=== PATIENT | female | born 1965 | race Hispanic/Latino ===

== ENCOUNTER 2017-01-27 06:41 | Emergency (ER) | payer SELFPAY ==
[2017-01-27] MEDS ORDERED: Ketorolac Tromethamine 30 MG/ML VIAL ONE (07:44)
[2017-01-27] MEDS ORDERED: Ondansetron ODT 4 MG TAB ONE (07:44)
[2017-01-27 07:46] LABS: Bilirubin Negative (Negative); Blood, Urine Trace (Negative); Glucose, Urine (Dipstick) Negative (Negative); Ketone, Urine Trace mg/dL (Negative); Nitrite Negative (Negative); Protein, Urine (Dipstick) Negative (Neg-Trace); Urobilinogen 0.2 mg/dL (0.2-1.0)
[2017-01-27 08:25] LABS: Bacteria/HPF 3+ HPF (None Seen); RBC/HPF 0-3 HPF (0-3)
== END 2017-01-27 08:47 | disposition home or self-care (01) ==
LOC: ERS 06:41
DX: M54.6 Pain in thoracic spine (principal); Z79.899 Other long term (current) drug therapy
CPT/HCPCS: 81003; 81015; 96372; J1885; Q0162

== ENCOUNTER 2017-04-23 08:15 | Emergency (ER) | payer SELFPAY ==
[2017-04-23 08:52] LABS: Bilirubin Negative (Negative); Blood, Urine Trace (Negative); Glucose, Urine (Dipstick) Negative (Negative); Ketone, Urine Negative (Negative); Nitrite Negative (Negative); Protein, Urine (Dipstick) Negative (Neg-Trace); Urobilinogen 0.2 mg/dL (0.2-1.0)
[2017-04-23 08:54] LABS: Bacteria/HPF None Seen HPF (None Seen); Hyaline Casts/LPF 0-3 HYALINE CAST LPF (0-3 Hyaline); RBC/HPF 0-3 HPF (0-3); Squamous Epithelial 0-3 HPF (0-3)
[2017-04-23 09:03] LABS: Yeast-All Forms None Seen HPF (None Seen)
[2017-04-23] MEDS ORDERED: Ondansetron HCl/PF 4 MG/2 ML Vial ONE (09:17)
[2017-04-23] MEDS ORDERED: Ondansetron ODT 4 MG TAB ONE (09:18)
== END 2017-04-23 10:05 | disposition home or self-care (01) ==
LOC: ERS 08:15
DX: R11.2 Nausea with vomiting, unspecified (principal); N39.0 Urinary tract infection, site not specified; T37.3X5A Adverse effect of other antiprotozoal drugs, initial encounter; T37.0X5A Adverse effect of sulfonamides, initial encounter; Z79.899 Other long term (current) drug therapy
CPT/HCPCS: 81003; 81015; 99283; J2405; Q0162

== ENCOUNTER 2017-04-27 03:27 | Emergency (ER) | payer SELFPAY | END 2017-04-27 03:59 | disposition left against medical advice (07) | LOC: ERS 03:27 | DX: Z53.21 Procedure and treatment not carried out due to patient leaving prior to being seen by health care provider (principal) ==

== ENCOUNTER 2017-07-08 12:56 | Emergency (ER) | payer SELFPAY ==
[2017-07-08 13:25] LABS: Bilirubin Negative (Negative); Blood, Urine Negative (Negative); Clarity CLOUDY (Clear); Glucose, Urine (Dipstick) Negative (Negative); Leukocyte Small (Negative); Nitrite Negative (Negative); Protein, Urine (Dipstick) Negative (Neg-Trace); Specific Gravity, Urine 1.014 (1.002-1.036); Urobilinogen 0.2 mg/dL (0.2-1.0)
[2017-07-08 13:30] LABS: Bacteria/HPF 1+ HPF (None Seen); Hyaline Casts/LPF 0-3 HYALINE CAST LPF (0-3 Hyaline); Pathc Cast-AUWi Flag 0.13 (0-2.49); WBC/HPF 0-3 HPF (0-3)
[2017-07-08 13:40] LABS: RBC/HPF 0-3 HPF (0-3)
[2017-07-09 22:26] LABS: Chlamydia by PCR Not Detected (NotDetected); GC by PCR Not Detected (NotDetected)
== END 2017-07-08 14:20 | disposition home or self-care (01) ==
LOC: ERS 12:56
DX: N76.0 Acute vaginitis (principal)
CPT/HCPCS: 81003; 81015; 87480; 87491; 87510; 87591; 87660; 99283

== ENCOUNTER 2018-04-15 21:45 | Emergency (ER) | payer SELFPAY ==
[2018-04-15 22:25] LABS: #Basophils 0.1 thou/uL (0.0-0.2); #Eosinphils 0.4 thou/uL (0.0-0.7); #Lymphocytes 4.3 thou/uL (1.20-3.40); #Monocytes 0.5 thou/uL (0.11-0.59); %Basophils 0.9 % (0.0-1.0); %Eosinophils 4.2 % (0.0-10.0); %Lymphocytes 46.4 % (21.0-51.0); %Monocytes 5.8 % (0.0-10.0); %Neutrophils 42.8 % (42.0-75.0); Hemoglobin 13.1 g/dL (12.0-16.0); Mean Corpuscular HGB CONC 35.2 g/dL (32.0-36.0); Mean Corpuscular Hemoglobin 30.4 pg (27.0-31.0); Mean Corpuscular Volume 86.4 fL (78.0-98.0); Mean Platelet Volume 8.5 fL (7.4-10.4); Platelet Count 196 thou/uL (130-400); RBC Distribution Width 12.2 % (11.5-14.5); White Blood Cell (WBC) Count 9.3 thou/uL (4.8-10.8)
[2018-04-15] MEDS ORDERED: Ondansetron PF 4 MG/2 ML Vial ONE (22:29)
--- NOTE | 2018-04-15 22:53 | RAD ---
CHEST PA AND LATERAL TWO VIEWS: 04/15/18 HISTORY: 52-year-old female with history of chest pain and chest tightness and pressure for three days. Heart size is normal. The lungs are clear. No pneumonia, edema, pleural effusion, or other acute proc ess. IMPRESSION: No acute intrathoracic disease. POS: [facility]
[2018-04-15 23:19] LABS: ALT (SGPT) 18 U/L (8-55); AST (SGOT) 19 U/L (5-34); Albumin 4.3 g/dL (3.5-5.0); Alkaline Phosphatase 126 U/L (40-150); Anion Gap 13 mmol/L (10-20); BUN (Urea Nitrogen) 16 mg/dL (9.8-20.1); Bilirubin, Total 0.4 mg/dL (0.2-1.2); Calc. Creatinine Clearance 0 mL/min (70-130); Calcium 9.6 mg/dL (7.8-10.44); Carbon Dioxide 27 mmol/L (22-29); Chloride 103 mmol/L (98-107); Estimated GFR-MDRD 58; Globulin 3.7 g/dL (2.4-3.5); Glucose 110 mg/dL (70-105); Potassium 3.6 mmol/L (3.5-5.1); Sodium 139 mmol/L (136-145)
--- NOTE | 2018-04-17 13:41 | EKG ---
Test Reason : Blood Pressure : / mmHG Vent. Rate : 098 BPM Atrial Rate : 098 BPM P-R Int : 120 ms QRS Dur : 070 ms QT Int : 356 ms P-R-T Axes : 040 067 053 degrees QTc Int : 454 ms Normal sinus rhythm Normal ECG Confirmed by DEBORAH LINDO DO ([id number]), mapping editor INÉS MICHAEL ([id number] on 04/17/2018 1:41:28 PM Referred By: Confirmed By:DEBORAH LINDO DO
== END 2018-04-16 02:02 | disposition home or self-care (01) ==
LOC: ERS 21:45
DX: R07.89 Other chest pain (principal)
CPT/HCPCS: 36415; 71046; 80053; 84484; 85025; 93005; 96374; J2405

== ENCOUNTER 2018-09-04 14:25 | Emergency (ER) | payer SELFPAY ==
[2018-09-04] MEDS ORDERED: Morphine 4 MG/ML VIAL ONE (15:01)
[2018-09-04] MEDS ORDERED: Ondansetron PF 4 MG/2 ML Vial ONE ×2 (15:01→16:41)
[2018-09-04 15:05] LABS: #Eosinphils 0.4 thou/uL (0.0-0.7); #Monocytes 0.5 thou/uL (0.11-0.59); #Neutrophils 4.1 thou/uL (1.40-6.50); %Basophils 0.3 % (0.0-1.0); %Lymphocytes 44.3 % (21.0-51.0); %Monocytes 5.9 % (0.0-10.0); %Neutrophils 45.6 % (42.0-75.0); Hemoglobin 13.5 g/dL (12.0-16.0); Mean Corpuscular HGB CONC 35.1 g/dL (32.0-36.0); Mean Corpuscular Hemoglobin 30.6 pg (27.0-31.0); Mean Corpuscular Volume 87.3 fL (78.0-98.0); Platelet Count 199 thou/uL (130-400); RBC Distribution Width 12.3 % (11.5-14.5); White Blood Cell (WBC) Count 8.9 thou/uL (4.8-10.8)
[2018-09-04 15:27] LABS: ALT (SGPT) 13 U/L (8-55); AST (SGOT) 15 U/L (5-34); Albumin 4.3 g/dL (3.5-5.0); Alkaline Phosphatase 119 U/L (40-150); Anion Gap 13 mmol/L (10-20); BUN (Urea Nitrogen) 12 mg/dL (9.8-20.1); Bilirubin, Total 0.5 mg/dL (0.2-1.2); Calc. Creatinine Clearance 0 mL/min (70-130); Calcium 9.1 mg/dL (7.8-10.44); Carbon Dioxide 28 mmol/L (22-29); Chloride 103 mmol/L (98-107); Estimated GFR-MDRD 61; Globulin 3.1 g/dL (2.4-3.5); Glucose 96 mg/dL (70-105); Lipase 43 U/L (8-78); Potassium 3.9 mmol/L (3.5-5.1); Protein, Total 7.4 g/dL (6.0-8.3); Sodium 140 mmol/L (136-145)
[2018-09-04 15:29] LABS: Bilirubin Negative (Negative); Blood, Urine Small (Negative); Clarity CLOUDY (Clear); Glucose, Urine (Dipstick) Negative (Negative); Leukocyte Moderate (Negative); Nitrite Negative (Negative); Protein, Urine (Dipstick) Negative (Neg-Trace); Specific Gravity, Urine 1.021 (1.002-1.036); Urobilinogen 0.2 mg/dL (0.2-1.0)
[2018-09-04 15:32] LABS: Bacteria/HPF 1+ HPF (None Seen); Hyaline Casts/LPF 0-3 HYALINE CAST LPF (0-3 Hyaline); Squamous Epithelial 0-3 HPF (0-3)
[2018-09-04 15:38] LABS: Pregnancy Test - Urine (BHCG) Negative (Negative); Pregu Control Background? CLEAR/WHITE (CLR/WHITE); Pregu Control Bar Appear? YES (CONTROL BAR); Specific Gravity 1.021 (1.002-1.036)
[2018-09-04] MEDS ORDERED: Sodium Chloride 0.9% 100 ML ONE (15:57)
[2018-09-04] MEDS ORDERED: cefTRIAXone\\ROCEPHIN 2 GM VIAL ONE (15:57)
--- NOTE | 2018-09-04 16:13 | CT ---
Contrast-enhanced CT images of abdomen and pelvis. HISTORY: Epigastric abdominal pain. The lung bases are unremarkable. No evidence of free intraperitoneal air seen. The liver contains hypodense areas most compatible with hepatic cysts. Some intrahepatic biliary dilatation is seen. The gallbladder has been surgically removed. Pancreas is unremarkable. The spleen is unremarkable. Adrenal glands and kidneys are unremarkable. No evidence of periaortic lymphadenopathy seen. Some jejunal fecalization of the small bowel content is present. There appears to be some surrounding edema surrounding these loops of small bowel. Some of the proximal small bowel loops are also thickened and dilated measuring up to 2 cm in diameter. This may represent changes of enteritis. Some mildly enlarged mesenteric lymph nodes also present in this area. More distally the small bowel is of normal caliber. Some colonic thickening. The descending colon is of normal caliber. No evidence of periaortic lymphadenopathy seen. No evidence of free intraperitoneal air or fluid seen. IMPRESSION: 1. Numerous hepatic cysts 2: Proximal small bowel dilatation with some inflammatory change and mildly enlarged mesenteric lymph nodes. Transcribed Date/Time: 09/04/2018 4:22 PM
[2018-09-04] MEDS ORDERED: ISOVUE-370 76%-LOCM 1 ML ONE (16:53)
== END 2018-09-04 17:00 | disposition home or self-care (01) ==
LOC: ERS 14:25
DX: N39.0 Urinary tract infection, site not specified (principal)
CPT/HCPCS: 36415; 74177; 80053; 81003; 81015; 81025; 83690; 84484; 85025; 87077; 87086; 87186; 93005; 96361; 96365; 96375; 96376; J0696; J2270; J2405; J3490; Q9966

== ENCOUNTER 2018-11-24 17:25 | Emergency (ER) | payer SELFPAY ==
[2018-11-24] MEDS ORDERED: Aspirin 325 MG TAB ONE (17:46)
[2018-11-24 17:56] LABS: #Eosinphils 0.4 thou/uL (0.0-0.7); #Lymphocytes 3.3 thou/uL (1.20-3.40); #Monocytes 0.4 thou/uL (0.11-0.59); #Neutrophils 3.7 thou/uL (1.40-6.50); %Basophils 0.1 % (0.0-1.0); %Eosinophils 5.7 % (0.0-10.0); %Lymphocytes 42.2 % (21.0-51.0); %Monocytes 5.2 % (0.0-10.0); %Neutrophils 46.8 % (42.0-75.0); Hemoglobin 13.6 g/dL (12.0-16.0); Mean Corpuscular HGB CONC 35.1 g/dL (32.0-36.0); Mean Corpuscular Hemoglobin 30.4 pg (27.0-31.0); Mean Corpuscular Volume 86.6 fL (78.0-98.0); Mean Platelet Volume 8.1 fL (7.4-10.4); Platelet Count 198 thou/uL (130-400); RBC Distribution Width 12.3 % (11.5-14.5); Red Blood Cell (RBC) Count 4.46 mill/uL (4.20-5.40); White Blood Cell (WBC) Count 7.8 thou/uL (4.8-10.8)
--- NOTE | 2018-11-24 18:06 | RAD ---
PORTABLE CHEST: 11/24/18 HISTORY: Chest pain. Lungs are clear. Heart and mediastinum appear normal. Vascular markings normal. IMPRESSION: Unremarkable chest. POS: OFF
[2018-11-24] MEDS ORDERED: Ondansetron ODT 4 MG TAB ONE (18:11)
[2018-11-24 18:20] LABS: ALT (SGPT) 21 U/L (8-55); AST (SGOT) 20 U/L (5-34); Albumin 4.4 g/dL (3.5-5.0); Alkaline Phosphatase 128 U/L (40-150); Anion Gap 14 mmol/L (10-20); BUN (Urea Nitrogen) 19 mg/dL (9.8-20.1); Bilirubin, Total 0.3 mg/dL (0.2-1.2); Calc. Creatinine Clearance 0 mL/min (70-130); Calcium 9.8 mg/dL (7.8-10.44); Carbon Dioxide 27 mmol/L (22-29); Chloride 104 mmol/L (98-107); Estimated GFR-MDRD 63; Globulin 3.4 g/dL (2.4-3.5); Glucose 112 mg/dL (70-105); Lipase 80 U/L (8-78); Protein, Total 7.8 g/dL (6.0-8.3); Sodium 141 mmol/L (136-145)
[2018-11-24 18:48] LABS: Bilirubin Negative (Negative); Blood, Urine Negative (Negative); Clarity Clear (Clear); Glucose, Urine (Dipstick) Normal (Negative); Leukocyte 250 Leu/uL (Negative); Nitrite Negative (Negative); Protein, Urine (Dipstick) Negative (Neg-Trace); Urobilinogen Normal mg/dL (Less than 2)
[2018-11-24 18:49] LABS: Bacteria/HPF 1+ HPF (None Seen)
--- NOTE | 2018-11-24 19:36 | ULT ---
DIRECTED ULTRASOUND LEFT BREAST: 11/24/18 INDICATION: Concern about spot on breast. Area of concern at 6 o'clock is imaged with ultrasound. No sonographic abnormality identified. IMPRESSION: No sonographic abnormality at the site of concern. POS: OFF
[2018-11-24] MEDS ORDERED: Lidocaine Viscous Sol 2% 15 ml UD Cup ONE (19:39)
[2018-11-24] MEDS ORDERED: Mag-Al 1200 mg/1200 mg/30 ML UDCUP ONE (19:39)
[2018-11-24] MEDS ORDERED: Lidocaine 2% Viscous Solution 10 ML, Aluminum & Magnesium Hydroxide 30 ML SSW SCH (19:45)
== END 2018-11-24 20:15 | disposition home or self-care (01) ==
LOC: ERS 17:25
DX: N64.4 Mastodynia (principal); N39.0 Urinary tract infection, site not specified
CPT/HCPCS: 36415; 71045; 80053; 81003; 81015; 83690; 84484; 85025; 93005; Q0162

== ENCOUNTER 2019-01-08 15:04 | Emergency (ER) | payer SELFPAY ==
[2019-01-08] MEDS ORDERED: Ondansetron ODT 4 MG TAB ONE (15:44)
--- NOTE | 2019-01-08 15:50 | RAD ---
EXAM: Two views chest PROVIDED CLINICAL HISTORY: Cough COMPARISON: 04/15/2018 FINDINGS: Cardiac and mediastinal silhouette appears within normal limits. Lungs appear free of significant opa city. No pleural fluid or pneumothorax apparent. IMPRESSION: No evidence for an acute cardiopulmonary process.
== END 2019-01-08 17:36 | disposition home or self-care (01) ==
LOC: ERS 15:04
DX: J06.9 Acute upper respiratory infection, unspecified (principal)
CPT/HCPCS: 71046; 87804; Q0162

== ENCOUNTER 2019-02-26 09:50 | Emergency (ER) | payer SELFPAY ==
[2019-02-26] MEDS ORDERED: Morphine 4 MG/ML VIAL ONE (10:13)
[2019-02-26] MEDS ORDERED: Ondansetron PF 4 MG/2 ML Vial ONE (10:13)
[2019-02-26 10:34] LABS: #Eosinphils 0.2 thou/uL (0.0-0.7); #Lymphocytes 3.4 thou/uL (1.20-3.40); #Monocytes 0.4 thou/uL (0.11-0.59); #Neutrophils 5.6 thou/uL (1.40-6.50); %Basophils 0.4 % (0.0-1.0); %Eosinophils 1.7 % (0.0-10.0); %Lymphocytes 35.5 % (21.0-51.0); %Monocytes 4.1 % (0.0-10.0); %Neutrophils 58.4 % (42.0-75.0); Mean Corpuscular HGB CONC 34.6 g/dL (32.0-36.0); Mean Corpuscular Hemoglobin 30.2 pg (27.0-31.0); Mean Corpuscular Volume 87.3 fL (78.0-98.0); Mean Platelet Volume 8.4 fL (7.4-10.4); Platelet Count 214 thou/uL (130-400); RBC Distribution Width 12.2 % (11.5-14.5); Red Blood Cell (RBC) Count 4.64 mill/uL (4.20-5.40); White Blood Cell (WBC) Count 9.6 thou/uL (4.8-10.8)
[2019-02-26 11:08] LABS: ALT (SGPT) 17 U/L (8-55); AST (SGOT) 22 U/L (5-34); Albumin 4.5 g/dL (3.5-5.0); Alkaline Phosphatase 131 U/L (40-110); Anion Gap 14 mmol/L (10-20); BUN (Urea Nitrogen) 11 mg/dL (9.8-20.1); Bilirubin, Total 0.6 mg/dL (0.2-1.2); Calc. Creatinine Clearance 0 mL/min (70-130); Calcium 9.7 mg/dL (7.8-10.44); Carbon Dioxide 24 mmol/L (22-29); Chloride 106 mmol/L (98-107); Estimated GFR-MDRD 66; Globulin 3.6 g/dL (2.4-3.5); Glucose 108 mg/dL (70-105); Potassium 4.3 mmol/L (3.5-5.1); Protein, Total 8.1 g/dL (6.0-8.3); Sodium 140 mmol/L (136-145)
[2019-02-26] MEDS ORDERED: Acetaminophen 500 MG TAB ONE (11:23)
[2019-02-26] MEDS ORDERED: ISOVUE-370 76%-LOCM 1 ML ONE (11:47)
--- NOTE | 2019-02-26 12:28 | CT ---
CT ABDOMEN AND PELVIS WITH IV CONTRAST: Date: 02/26/19 HISTORY: Lower abdominal/suprapubic pain. FINDINGS: Comparison made with exam of 09/04/18. The lung bases are clear. The patient is post cholecystectomy, appendectomy, and hysterectomy. Multiple low density lesions in the liver, likely cysts, are stable. The spleen, pancreas, adrenal gl ands, and kidneys are normal. No free air, free fluid, or lymphadenopathy seen in the abdomen or pelvis. There is no evidence of an eurysmal dilatation of the abdominal aorta. There are mild degenerative changes in the spine. The consatnza cending colon and sigmoid colon are decompressed with prominent walker. No pericolonic inflammatory ch anges are seen. IMPRESSION: Incomplete distention versus wall thickening of the descending and sigmoid colon. Colonoscopy would b e helpful. POS: OFF
[2019-02-26 12:29] LABS: Bacteria/HPF 1+ HPF (None Seen); Bilirubin Negative (Negative); Blood, Urine Trace (Negative); Clarity Clear (Clear); Glucose, Urine (Dipstick) Normal (Negative); Leukocyte Negative Leu/uL (Negative); Nitrite Negative (Negative); Protein, Urine (Dipstick) Negative (Neg-Trace); RBC/HPF 0-3 HPF (0-3); Squamous Epithelial 0-3 HPF (0-3); Urobilinogen Normal mg/dL (Less than 2); WBC/HPF 0-3 HPF (0-3)
== END 2019-02-26 13:53 | disposition home or self-care (01) ==
LOC: ERS 09:50
DX: K52.9 Noninfective gastroenteritis and colitis, unspecified (principal)
CPT/HCPCS: 74177; 80053; 81003; 81015; 85025; 96361; 96374; 96375; J2270; J2405; Q9966

== ENCOUNTER 2019-02-28 09:19 | Emergency (ER) | payer SELFPAY | END 2019-02-28 12:05 | disposition left against medical advice (07) | LOC: ERS 09:19 | DX: Z53.21 Procedure and treatment not carried out due to patient leaving prior to being seen by health care provider (principal) ==

== ENCOUNTER 2019-06-21 23:11 | Emergency (ER) | payer SELFPAY ==
[2019-06-21 23:34] LABS: Bilirubin Negative (Negative); Blood, Urine 3+ (Negative); Clarity Turbid (Clear); Glucose, Urine (Dipstick) Normal (Negative); Leukocyte 500 Leu/uL (Negative); Nitrite Negative (Negative); Protein, Urine (Dipstick) 50 mg/dL (Neg-Trace); RBC/HPF Greater than 50 HPF (0-3); Transitional Epithelial 0-3 HPF (None Seen); Urobilinogen Normal mg/dL (Less than 2); WBC/HPF Greater than 50 HPF (0-3)
[2019-06-21 23:38] LABS: Bacteria/HPF 1+ HPF (None Seen)
== END 2019-06-22 01:41 | disposition left against medical advice (07) ==
LOC: ERS 23:11
DX: Z53.21 Procedure and treatment not carried out due to patient leaving prior to being seen by health care provider (principal)
CPT/HCPCS: 81003; 81015

== ENCOUNTER 2019-08-07 13:35 | Emergency (ER) | payer OTHER ==
[2019-08-07] MEDS ORDERED: Acetaminophen 500 MG TAB ONE (13:51)
== END 2019-08-07 14:22 | disposition home or self-care (01) ==
LOC: ERS 13:35
DX: J06.9 Acute upper respiratory infection, unspecified (principal)
CPT/HCPCS: 87804; 99283

== ENCOUNTER 2019-08-26 21:33 | Emergency (ER) | payer OTHER ==
[2019-08-26 22:43] LABS: Bacteria/HPF None Seen HPF (None Seen); Bilirubin Negative (Negative); Blood, Urine Negative (Negative); Clarity Clear (Clear); Glucose, Urine (Dipstick) Normal (Negative); Leukocyte 25 Leu/uL (Negative); Nitrite Negative (Negative); Protein, Urine (Dipstick) 20 mg/dL (Neg-Trace); RBC/HPF 0-3 HPF (0-3); Urobilinogen Normal mg/dL (Less than 2)
[2019-08-26] MEDS ORDERED: Metoclopramide HCl 10 MG/2 ML VIAL ONE (23:21)
[2019-08-26] MEDS ORDERED: Ketorolac Tromethamine 30 MG/ML VIAL ONE (23:21)
== END 2019-08-27 01:14 | disposition home or self-care (01) ==
LOC: ERS 21:33
DX: R51 Headache (principal); R11.2 Nausea with vomiting, unspecified
CPT/HCPCS: 81003; 81015; 96365; 96375; J1885; J2765

== ENCOUNTER 2019-10-04 11:37 | Emergency (ER) | payer OTHER | END 2019-10-04 13:30 | disposition home or self-care (01) | LOC: ERS 11:37 | DX: S93.401A Sprain of unspecified ligament of right ankle, initial encounter (principal); X50.1XXA Overexertion from prolonged static or awkward postures, initial encounter | CPT/HCPCS: 99283 ==

== ENCOUNTER 2019-10-10 09:26 | Outpatient (CLI) | payer OTHER ==
--- NOTE | 2019-10-10 15:07 | ULT ---
LEFT BREAST ULTRASOUND: History: Follow up of hypoechoic lesion, left breast, 7 o'clock position. Comparison: 04-06-19 FINDINGS: Real-time imaging of the area of concern which is at the 7 o'clock position 4 cm from the nipple show s a hypoechoic lesion with areas of increased signal change which could represent septation related t o a cyst, possibly this represents a lymph node, but no flow could be demonstrated. It is stable in a ppearance measuring approximately 3 x 8 mm in size. IMPRESSION: Stable hypoechoic probable complex cyst at the 7 o'clock position 4 cm from the nipple. An additional 6 month follow up examination is recommended for more complete assessment. POS: [facility]
== END 2019-10-10 09:27 | disposition home or self-care (01) ==
LOC: BICULT 09:26 → EDSTATUS 10:00
PROVIDERS: ATTEND Nurse Practitioner Family
DX: N63.20 Unspecified lump in the left breast, unspecified quadrant (principal); N60.02 Solitary cyst of left breast

== ENCOUNTER 2020-04-03 17:19 | Emergency (ER) | payer OTHER ==
[2020-04-03 19:06] LABS: Bilirubin Negative (Negative); Blood, Urine Negative (Negative); Clarity Clear (Clear); Glucose, Urine (Dipstick) Normal (Negative); Ketone, Urine Trace mg/dL (Negative); Leukocyte 250 Leu/uL (Negative); Mucous/LPF 1+ LPF (<2+); Nitrite Negative (Negative); Protein, Urine (Dipstick) 10 mg/dL (Neg-Trace); Specific Gravity, Urine 1.029 (1.002-1.036); Urobilinogen Normal mg/dL (Less than 2); WBC/HPF 21-50 HPF (0-3); pH, Urine 6.5 (5.0-9.0)
[2020-04-03 19:13] LABS: Bacteria/HPF 1+ HPF (None Seen)
== END 2020-04-03 19:32 | disposition home or self-care (01) ==
LOC: ERS 17:19
DX: N39.0 Urinary tract infection, site not specified (principal)
CPT/HCPCS: 81003; 81015; 87086; 99283

== ENCOUNTER 2023-05-27 08:44 | Emergency (ER) | payer OTHER ==
[2023-05-27] MEDS ORDERED: Cyclobenzaprine 10 MG TAB ONE (09:19)
[2023-05-27] MEDS ORDERED: Ibuprofen 200 MG TAB ONE (09:20)
[2023-05-27] MEDS ORDERED: Ondansetron ODT 4 MG TAB ONE (09:20)
== END 2023-05-27 10:03 | disposition home or self-care (01) ==
LOC: ERS 08:44
DX: M62.838 Other muscle spasm (principal); X58.XXXA Exposure to other specified factors, initial encounter; Y99.0 Civilian activity done for income or pay
CPT/HCPCS: Q0162

== ENCOUNTER 2023-06-18 18:46 | Emergency (ER) | payer OTHER ==
[2023-06-18 19:25] LABS: #Eosinphils 0.2 thou/uL (0.0-0.7); #Monocytes 0.4 thou/uL (0.11-0.59); #Neutrophils 2.9 thou/uL (1.40-6.50); %Basophils 0.4 % (0.0-1.0); %Eosinophils 2.8 % (0.0-10.0); %Lymphocytes 47.7 % (21.0-51.0); %Monocytes 5.7 % (0.0-10.0); %Neutrophils 42.8 % (42.0-75.0); Hematocrit 38.1 % (36.0-47.0); Mean Corpuscular HGB CONC 34.1 g/dL (32.0-36.0); Mean Corpuscular Volume 87.8 fl (78.0-98.0); Mean Platelet Volume 10.3 fL (7.4-10.4); Platelet Count 183 10x3/uL (130-400); RBC Distribution Width 12.8 % (11.5-14.5); Red Blood Cell (RBC) Count 4.34 mill/uL (4.20-5.40); White Blood Cell (WBC) Count 6.9 10x3/uL (4.8-10.8)
[2023-06-18 19:52] LABS: Troponin I Less than 0.010 ng/mL (< 0.028)
[2023-06-18 19:59] LABS: ALT (SGPT) 41 U/L (8-55); AST (SGOT) 35 U/L (5-34); Albumin 4.4 g/dL (3.5-5.0); Alkaline Phosphatase 94 U/L (40-110); Anion Gap 12 mmol/L (10-20); BUN (Urea Nitrogen) 14 mg/dL (9.8-20.1); Bilirubin, Total 0.5 mg/dL (0.2-1.2); Calc. Creatinine Clearance 0 mL/min (70-130); Calcium 9.2 mg/dL (7.8-10.44); Carbon Dioxide 27 mmol/L (22-29); Chloride 104 mmol/L (98-107); Estimated GFR 74; Glucose 125 mg/dL (70-105); Potassium 3.9 mmol/L (3.5-5.1); Protein, Total 7.4 g/dL (6.0-8.3); Sodium 139 mmol/L (136-145)
[2023-06-18] MEDS ORDERED: Ondansetron PF 4 MG/2 ML Vial ONE (21:30)
[2023-06-18] MEDS ORDERED: Ketorolac Tromethamine 30 MG (1 mL) VIAL ONE (21:30)
[2023-06-18 22:51] LABS: SARS-CoV-2 NAA Rapid Test Not Detected (NotDetected)
== END 2023-06-18 22:04 | disposition home or self-care (01) ==
LOC: ERS 18:46
DX: M54.2 Cervicalgia (principal); R07.9 Chest pain, unspecified
CPT/HCPCS: 36415; 71046; 80053; 84484; 85025; 85379; 93005; 96374; 96375; J1885; J2405

== ENCOUNTER 2023-11-13 04:55 | Emergency (ER) | payer OTHER ==
[2023-11-13] MEDS ORDERED: Ketorolac Tromethamine 30 MG (1 mL) VIAL ONE (05:53)
== END 2023-11-13 06:21 | disposition home or self-care (01) ==
LOC: ERS 04:55
DX: J02.0 Streptococcal pharyngitis (principal)
CPT/HCPCS: 96372; 99283; J1885

== ENCOUNTER 2024-01-29 06:07 | Emergency (ER) | payer OTHER, SELFPAY ==
[2024-01-29] MEDS ORDERED: Ibuprofen 200 MG TAB ONE (06:31)
[2024-01-29 06:44] LABS: Bilirubin Negative (Negative); Blood, Urine 3+ (Negative); CAUTI Indications for Culture Dysuria,urgency,freq; Clarity Turbid (Clear); Glucose, Urine (Dipstick) Normal (Negative); Ketone, Urine Negative (Negative); Leukocyte 500 Leu/uL (Negative); Nitrite Negative (Negative); Protein, Urine (Dipstick) 20 mg/dL (Neg-Trace); RBC/HPF Greater than 50 HPF (0-3); Specific Gravity, Urine 1.016 (1.002-1.036); Urobilinogen Normal mg/dL (Less than 2); WBC/HPF Greater than 50 HPF (0-3)
[2024-01-29 06:45] LABS: Bacteria/HPF 1+ HPF (None Seen); Urine Culture Reflex Yes Yes
[2024-01-29] MEDS ORDERED: Sulfameth/Trimethoprim DS 800-160mg TAB ONE (06:56)
== END 2024-01-29 07:00 | disposition home or self-care (01) ==
LOC: ERS 06:07
DX: R30.0 Dysuria (principal); R35.0 Frequency of micturition
CPT/HCPCS: 81001; 87077; 87086; 87186; 99283

== ENCOUNTER 2024-01-30 04:02 | Emergency (ER) | payer SELFPAY ==
[2024-01-30] MEDS ORDERED: Ondansetron ODT 4 MG TAB ONE (04:15)
== END 2024-01-30 04:25 | disposition home or self-care (01) ==
LOC: ERS 04:02
DX: N39.0 Urinary tract infection, site not specified (principal); R11.0 Nausea
CPT/HCPCS: 99283; Q0162

== ENCOUNTER 2024-07-18 23:10 | Emergency (ER) | payer OTHER ==
[2024-07-19 01:19] LABS: Bacteria/HPF 1+ HPF (None Seen); Bilirubin Negative (Negative); Blood, Urine Negative (Negative); CAUTI Indications for Culture Pelvic or flank pain; Clarity Clear (Clear); Glucose, Urine (Dipstick) Normal (Negative); Ketone, Urine Negative (Negative); Leukocyte 500 Leu/uL (Negative); Nitrite Negative (Negative); Protein, Urine (Dipstick) Negative (Neg-Trace); Specific Gravity, Urine 1.005 (1.002-1.036); Squamous Epithelial 0-3 HPF (0-3); Urobilinogen Normal mg/dL (Less than 2)
[2024-07-19 01:20] LABS: Urine Culture Reflex Yes Yes
[2024-07-19] MEDS ORDERED: Ondansetron PF 4 MG/2 ML Vial ONE (01:34)
[2024-07-19] MEDS ORDERED: Morphine 4 MG/ML VIAL ONE (01:34)
[2024-07-19] MEDS ORDERED: Ketorolac Tromethamine 30 MG (1 mL) VIAL ONE ×2 (01:34→03:02)
[2024-07-19 01:55] LABS: #Basophils Less than 0.03 10x3/uL (0.0-0.2); %Basophils 0.2 % (0.0-1.0); %Eosinophils 2.4 % (0.0-10.0); %Lymphocytes 40.7 % (21.0-51.0); %Monocytes 6.1 % (0.0-10.0); %Neutrophils 50.1 % (42.0-75.0); Hematocrit 37.3 % (36.0-47.0); Hemoglobin 13.1 g/dL (12.0-16.0); Mean Corpuscular HGB CONC 35.1 g/dL (32.0-36.0); Mean Corpuscular Hemoglobin 30.1 pg (27.0-31.0); Mean Corpuscular Volume 85.7 fL (78.0-98.0); Mean Platelet Volume 10.7 fL (7.4-10.4); Platelet Count 186 10x3/uL (130-400); RBC Distribution Width 12.8 % (11.5-14.5); Red Blood Cell (RBC) Count 4.35 mill/uL (4.20-5.40)
[2024-07-19 02:08] LABS: ALT (SGPT) 21 U/L (Less than 34); AST (SGOT) 29 U/L (11-34); Albumin 4.7 g/dL (3.1-4.5); Alkaline Phosphatase 66 U/L (40-110); Anion Gap 15 mmol/L (10-20); BUN (Urea Nitrogen) 10 mg/dL (9.8-20.1); Bilirubin, Total 0.8 mg/dL (0.3-1.2); Calc. Creatinine Clearance 0 mL/min (70-130); Calcium 9.7 mg/dL (7.8-10.44); Carbon Dioxide 24 mmol/L (22-29); Chloride 105 mmol/L (98-107); Estimated GFR 62; Globulin 3.4 g/dL (2.4-3.5); Glucose 109 mg/dL (70-105); Potassium 4.1 mmol/L (3.5-5.1); Protein, Total 8.1 g/dL (6.0-8.3); Sodium 140 mmol/L (136-145)
[2024-07-19] MEDS ORDERED: cefTRIAXone (ROCEPHIN) 2 GM VIAL ONE (03:02)
[2024-07-19] MEDS ORDERED: Sodium Chloride 0.9% 100 ML ONE (03:02)
== END 2024-07-19 04:36 | disposition home or self-care (01) ==
LOC: ERS 23:10
DX: N39.0 Urinary tract infection, site not specified (principal); Z16.24 Resistance to multiple antibiotics; R30.0 Dysuria; M54.9 Dorsalgia, unspecified; R11.0 Nausea
CPT/HCPCS: 74176; 80053; 81001; 83605; 85025; 87086; 96365; 96375; 96376; 99283; J0696; J1885; J2270; J2405

== ENCOUNTER 2025-04-13 15:56 | Emergency (ER) | payer OTHER, SELFPAY ==
[2025-04-13 16:31] LABS: Bacteria/HPF None Seen HPF (None Seen); CAUTI Indications for Culture Dysuria,urgency,freq; Glucose, Urine (Dipstick) Normal (Negative); Leukocyte 25 Leu/uL (Negative); Protein, Urine (Dipstick) Negative (Neg-Trace); RBC/HPF 0-3 HPF (0-3); Specific Gravity, Urine 1.022 (1.002-1.036); WBC/HPF 0-3 HPF (0-3)
[2025-04-13 16:32] LABS: Urine Culture Reflex No No
[2025-04-13] MEDS ORDERED: predniSONE 20 MG TAB ONE (17:10)
[2025-04-13] MEDS ORDERED: Ibuprofen 200 MG TAB ONE (17:10)
== END 2025-04-13 17:21 | disposition home or self-care (01) ==
LOC: ERS 15:56
DX: M54.50 Low back pain, unspecified (principal); Z55.6 Problems related to health literacy
CPT/HCPCS: 81001; 99283; J7512